=== PATIENT | male | born 1955 | race Caucasian/White ===

== ENCOUNTER 2016-03-17 05:11 | Inpatient (IN) | payer OTHER ==
[2016-03-17 06:37] LABS: ABSOLUTE BASOPHILS # (AUTO) 0.1 10^3/uL (0.0-0.2); ABSOLUTE LYMPHOCYTES (AUTO) 1.1 10^3/uL (0.5-4.7); ABSOLUTE MONOCYTES (AUTO) 0.8 10^3/uL (0.1-1.4); ABSOLUTE NEUT (AUTO) 13.7 10^3/uL (1.7-8.2); BASOPHILS % (AUTO) 0.5 % (0-2); EOSINOPHILS % (AUTO) 0.1 % (0-6); HEMATOCRIT 49.5 % (37.9-51.0); HEMOGLOBIN 16.5 g/dL (13.5-17.0); MEAN CORPUSCULAR HEMOGLOBIN 31.6 pg (27.0-33.4); MEAN CORPUSCULAR HGB CONC 33.3 g/dL (32.0-36.0); MEAN CORPUSCULAR VOLUME 95 fl (80-97); MONOCYTES % (AUTO) 4.9 % (3-13); SEGMENTED NEUTROPHILS % (AUTO) 87.5 % (42-78); WHITE BLOOD COUNT 15.6 10^3/uL (4.0-10.5)
[2016-03-17 06:51] LABS: ALANINE AMINOTRANSFERASE 33 U/L (21-72); ALBUMIN 4.3 g/dL (3.5-5.0); ALKALINE PHOSPHATASE 116 U/L (38-126); ANION GAP 14 (5-19); ASPARTATE AMINO TRANSFERASE 27 U/L (17-59); BLOOD UREA NITROGEN 14 mg/dL (7-20); CALCIUM 10.1 mg/dL (8.4-10.2); CARBON DIOXIDE 29 mmol/L (22-30); CHLORIDE 101 mmol/L (98-107); CREATININE RESULT 0.94 mg/dL (0.52-1.25); GLUCOSE 189 mg/dL (75-110); LIPASE 162.4 U/L (23-300); POTASSIUM 4.3 mmol/L (3.6-5.0); SODIUM 143.9 mmol/L (137-145); TOTAL PROTEIN 7.9 g/dL (6.3-8.2)
--- NOTE | 2016-03-17 07:39 | ER Document Report ---
ED General - General Chief Complaint: Abdominal Pain Stated Complaint: ABDOMINAL PAIN Mode of Arrival: Ambulatory Information source: Patient Notes: 60-year-old male history of previous hernia repair presents with complaints of umbilical tenderness. Patient denies any fevers chills nausea vomiting or diarrhea patient states the pain has been sharp in nature TRAVEL OUTSIDE OF THE [place] IN LAST 30 DAYS: No - HPI Onset: Yesterday Onset/Duration: Sudden Quality of pain: Sharp Severity: Mild Pain Level: 2 Associated symptoms: None Exacerbated by: Denies Relieved by: Denies Similar symptoms previously: No Recently seen / treated by doctor: No - Related Data Allergies/Adverse Reactions: No Known Allergies Allergy (Verified 12/31/15 12:25) Home Medications: Current Home Medications Gabapentin [Gabapentin] 03/17/16 [History] Past Medical History - Social History Smoking Status: Current Every Day Smoker Cigarette use (# per day): Yes Chew tobacco use (# tins/day): No Smoking Education Provided: No Family History: Reviewed & Not Pertinent - Past Medical History Cardiac Medical History: Reports: Hx Hypercholesterolemia, Hx Heart Murmur - resolved Denies: Hx Atrial Fibrillation, Hx Congestive Heart Failure, Hx Coronary Artery Disease, Hx Heart Attack, Hx Hypertension, Hx Peripheral Vascular Disease Pulmonary Medical History: Neurological Medical History: GI Medical History: Reports: Hx Hiatal Hernia. Denies: Hx Crohn's Disease, Hx Gastroesophageal Reflux Disease, Hx Hepatitis, Hx Irritable Bowel, Hx Liver Failure, Hx Ulcer Musculoskeltal Medical History: Reports Hx Arthritis, Denies Hx Fibromyalgia, Denies Hx Muscular Dystrophy Traumatic Medical History: Reports: Hx Fractures - ring finger-right hand Infectious Medical History: Denies: Hx Hepatitis Past Surgical History: Reports: Hx Bowel Surgery, Hx Herniorrhaphy, Hx Tonsillectomy. Denies: Hx Appendectomy, Hx Cholecystectomy, Hx Colostomy, Hx Coronary Artery Bypass Graft, Hx Gastric Bypass Surgery, Hx Open Heart Surgery, Hx Pacemaker Review of Systems - Review of Systems Notes: REVIEW OF SYSTEMS: CONSTITUTIONAL : Denies fever, chills, or sweats. Denies recent illness. EENT: Denies eye, ear, throat, or mouth pain or symptoms. Denies nasal or sinus congestion or discharge. Denies throat, tongue, or mouth swelling or difficulty swallowing. CARDIOVASCULAR: Denies chest pain. Denies palpitations or racing or irregular heart beat. Denies ankle edema. RESPIRATORY: Denies cough, cold, or chest congestion. Denies shortness of breath, difficulty breathing, or wheezing. GASTROINTESTINAL: admits ot ad pain GENITOURINARY: Denies difficulty urinating, painful urination, burning, frequency, blood in urine, or discharge. MUSCULOSKELETAL: Denies back or neck pain or stiffness. Denies joint pain or swelling. SKIN: Denies rash, lesions or sores. HEMATOLOGIC : Denies easy bruising or bleeding. LYMPHATIC: Denies swollen, enlarged glands. NEUROLOGICAL: Denies confusion or altered mental status. Denies passing out or loss of consciousness. Denies dizziness or lightheadedness. Denies headache. Denies weakness or paralysis or loss of use of either side. Denies problems with gait or speech. Denies sensory loss, numbness, or tingling. Denies seizures. PSYCHIATRIC: Denies anxiety or stress. Denies depression, suicidal ideation, or homicidal ideation. ALL OTHER SYSTEMS REVIEWED AND NEGATIVE. Dictation was performed using BU[employer] voice recognition software PHYSICAL EXAMINATION: GENERAL: Well-appearing, well-nourished and in no acute distress. HEAD: Atraumatic, normocephalic. EYES: Pupils equal round and reactive to light, extraocular movements intact, sclera anicteric, conjunctiva are normal. ENT: Nares patent, oropharynx clear without exudates. Moist mucous membranes. NECK: Normal range of motion, supple without lymphadenopathy LUNGS: Breath sounds clear to auscultation bilaterally and equal. No wheezes rales or rhonchi. HEART: Regular rate and rhythm without murmurs ABDOMEN: Soft, tender in the umbilical region, no hernia noted, previous surgical inciosins well healed. Musculoskeletal: Normal range of motion, no pitting or edema. No cyanosis. NEUROLOGICAL: Cranial nerves grossly intact. Normal speech, normal gait. Normal sensory, motor exams PSYCH: Normal mood, normal affect. SKIN: Warm, Dry, normal turgor, no rashes or lesions noted. Physical Exam - Vital signs Vitals: Temp Pulse Resp BP Pulse Ox 97.8 F 93 19 151/86 H 92 03/17/16 05:27 03/17/16 05:27 03/17/16 05:27 03/17/16 05:27 03/17/16 05:27 Course - Re-evaluation Re-evalutation: 03/17/16 07:39 ct emergently ordered to rule out dissection 03/17/16 08:[address] is concerning for a small bowel obstruction patient notes last bowel movement yesterday at 7:30 pain started around 11. Contacted surgeon who is in the middle surgery NG tube will be placed 03/17/16 09:53 Dr. Chowdhury will evaluate the patient for admission - Vital Signs Vital signs: Temp Pulse Resp BP Pulse Ox 97.9 F 94 16 144/89 H 95 03/17/16 07:48 03/17/16 07:48 03/17/16 09:01 03/17/16 09:01 03/17/16 09:01 - Laboratory Result Diagrams: 03/17/16 06:25 03/17/16 06:25 Laboratory results interpreted by me: 03/17/16 03/17/16 06:25 06:25 WBC 15.6 H Seg Neutrophils % 87.5 H Lymphocytes % 7.0 L Absolute Neutrophils 13.7 H Glucose 189 H - Diagnostic Test Radiology reviewed: Image reviewed, Reports reviewed Discharge - Discharge Clinical Impression: Small bowel obstruction Condition: Stable Disposition: ADMITTED OBSERVATION Admitting Provider: Surgicalist Unit Admitted: Surgical Floor
[2016-03-17] MEDS ORDERED: NORMAL SALINE 1000 ML 1,000 ML IV PRN (08:10)
[2016-03-17 09:58] LABS: APPEARANCE,URINE CLEAR; BILIRUBIN,URINE NEGATIVE (NEGATIVE); GLUCOSE, URINE 50 mg/dL (NEGATIVE); KETONES,URINE NEGATIVE (NEGATIVE); LEUKOCYTE ESTERASE,URINE NEGATIVE (NEGATIVE); NITRITE,URINE NEGATIVE (NEGATIVE); PROTEIN,URINE NEGATIVE (NEGATIVE)
[2016-03-17 10:01] LABS: URINE SPECIFIC GRAVITY > 1.060
[2016-03-17] MEDS ORDERED: LORAZEPAM INJ 2 MG/1 ML VIAL IV ONE (11:13)
[2016-03-17] MEDS ORDERED: PHARMACY COMMUNICATION ORDER MC NR ×2 (11:45→15:30)
[2016-03-17] MEDS ORDERED: ONDANSETRON HCL INJ/PF 4 MG/2 ML SDV IV PRN (15:28)
--- NOTE | 2016-03-17 16:03 | PDOC H&P ---
History of Present Illness Admission Date/PCP: 03/17/16 10:28 JOSE PIERRE MD History of Present Illness: MARLEN RAYMOND JR is a 60 -year-old white male who was awoken from his sleep at 1:30 AM with the acute onset of severe mid abdominal pain. The pain was 5/ 10 aching at a baseline with more intense sharp spasms of pain 10/10. Sharp spasms of pain would last 20-30 seconds. In addition to the sharp central abdominal pain he also had a bloating feeling, shakes with pain, sweats, lightheadedness, increased burping, feeling of his "guts" churning and decreased urine output. He reports rare flatus today. He reports a normal bowel movement, brown, performed at 8 PM last evening. The pain did not radiate up to his chest, down to his legs nor around to his back. He had shortness of breath due to the pain only, but no baseline shortness of breath. He reports history of ventral hernia repair in 1966 as well as umbilical hernia [place] [address] Moncada. He denies any previous bowel obstructions. Review of systems is positive for right leg swelling. He had recent right total knee replacement on 01/11/2016 and still has swelling. Past Medical History Cardiac Medical History: Reports: Hyperlipidema, Heart Murmur Pulmonary Medical History: Neurological Medical History: Musculoskeltal Medical History: Reports: Arthritis - Osteoarthritis. Total right knee replacement., Other - Chronic low back pain. Hematology: Past Surgical History Past Surgical History: Reports: Herniorrhaphy - Ventral hernia repair 1966. Umbilical hernia repair 2008, Dr. Moncada., Orthopedic Surgery - Right total knee replacement on 01/19/2016., Tonsillectomy - 1964, Other Social History Information Source: Patient Lives with: Alone Smoking Status: Former Smoker - On Chantix for almost 3 months. Cigarettes Packs Per Day: 1.5 Number of Years Smokin Frequency of Alcohol Use: None Hx Recreational Drug Use: No Hx Prescription Drug Abuse: No Family History Family History: Reviewed & Not Pertinent, Other - Denies any family history of bleeding disorders, blood clots or anesthesia problems. Parental Family History Reviewed: Yes Children Family History Reviewed: Yes Sibling(s) Family History Reviewed.: Yes Medication/Allergy Home Medications: Atorvastatin Calcium [Lipitor 40 mg Tablet] 40 mg PO QHS 03/17/16 Gabapentin [Neurontin 300 mg Capsule] 300 mg PO Q8HP PRN 03/17/16 Multivitamin [Multivitamins] 1 each PO DAILY 03/17/16 Varenicline Tartrate [Chantix 1 mg Tablet] 1 mg PO BID 03/17/16 Allergies/Adverse Reactions: No Known Allergies Allergy (Verified 12/31/15 12:25) Review of Systems All systems: reviewed and no additional remarkable complaints except as stated Physical Exam Vital Signs: Temp Pulse Resp BP Pulse Ox 98.8 F 94 13 146/87 H 96 03/17/16 15:00 03/17/16 07:48 03/17/16 15:01 03/17/16 15:01 03/17/16 15:01 General appearance: PRESENT: no acute distress, morbidly obese Head exam: PRESENT: normocephalic Eye exam: PRESENT: EOMI Mouth exam: PRESENT: tongue midline Neck exam: ABSENT: JVD, lymphadenopathy, tenderness, thyromegaly Respiratory exam: PRESENT: clear to auscultation jeovany Cardiovascular exam: PRESENT: RRR, systolic murmur GI/Abdominal exam: PRESENT: distended, soft, other - Some bowel sounds. NG tube to low intermittent suction with feculent material.. ABSENT: guarding, rebound, tenderness Extremities exam: PRESENT: other - Bilateral lower extremity swelling, right is worse than the left. Right knee has a healed total knee replacement vertical incision. Neurological exam: PRESENT: alert, oriented to person, oriented to place, oriented to time, oriented to situation Psychiatric exam: PRESENT: appropriate affect, normal mood Skin exam: ABSENT: jaundice Results Impressions: Abdomen/Pelvis CT 03/17/16 06:18 IMPRESSION: Findings consistent with a small bowel obstruction as noted above. Small gallstones are identified. Other findings as noted above KUB X-Ray 03/17/16 08:31 IMPRESSION: Nasogastric tube tip and side port in the stomach Status: Image reviewed by me Assessment & Plan - Diagnosis (1) SBO (small bowel obstruction) Is this a current diagnosis for this admission?: YesPlan: Discussed and reviewed films, labs, NG tube output. Small bowel obstruction. Recommend admission to hospital, IV fluids, nothing by mouth status, continued NG tube to low intermittent suction, SCDs, Lovenox for DVT/PE prophylaxis, incentive spirometry, recheck labs in the morning. We discussed indications for proceeding to urgent/emergent surgery but short of those indications, we anticipate a nonoperative course.
[2016-03-17] MEDS ORDERED: PANTOPRAZOLE SODIUM 40 MG VIAL IV ONE (16:30)
[2016-03-17] MEDS: POTASSI CL 20 MEQ/D5-1/2NS 1L 1,000 ML IV PRN (16:55)
[2016-03-17] MEDS: MORPHINE SULFATE 10 MG/ML INJ IV PRN (20:53)
[2016-03-17] MEDS ORDERED: INFLUENZA ADLT QUAD (36MOS+) 2016-17 VAC 0.5 ML SYR IM PRN (21:48)
[2016-03-18] MEDS: POTASSI CL 20 MEQ/D5-1/2NS 1L 1,000 ML IV PRN (04:53)
[2016-03-18] MEDS: MORPHINE SULFATE 10 MG/ML INJ IV PRN (05:05)
[2016-03-18 06:38] LABS: HEMOGLOBIN 15.6 g/dL (13.5-17.0); HGB HCT DIFFERENCE -1.2; MEAN CORPUSCULAR HEMOGLOBIN 31.2 pg (27.0-33.4); MEAN CORPUSCULAR HGB CONC 32.5 g/dL (32.0-36.0); MEAN CORPUSCULAR VOLUME 96 fl (80-97); RED BLOOD COUNT 4.99 10^6/uL (4.35-5.55); RED CELL DISTRIBUTION WIDTH 12.9 % (11.5-14.0); WHITE BLOOD COUNT 11.1 10^3/uL (4.0-10.5)
[2016-03-18 07:00] LABS: ALANINE AMINOTRANSFERASE 31 U/L (21-72); ALBUMIN 3.9 g/dL (3.5-5.0); ALKALINE PHOSPHATASE 95 U/L (38-126); ANION GAP 10 (5-19); ASPARTATE AMINO TRANSFERASE 21 U/L (17-59); BLOOD UREA NITROGEN 8 mg/dL (7-20); CALCIUM 9.3 mg/dL (8.4-10.2); CARBON DIOXIDE 28 mmol/L (22-30); CHLORIDE 105 mmol/L (98-107); CREATININE RESULT 0.91 mg/dL (0.52-1.25); GLUCOSE 113 mg/dL (75-110); POTASSIUM 4.4 mmol/L (3.6-5.0); SODIUM 143.2 mmol/L (137-145); TOTAL PROTEIN 6.8 g/dL (6.3-8.2)
--- NOTE | 2016-03-18 09:07 | PDOC PROGRESS REPORT ---
Subjective Progress Note for:: 03/18/16 Subjective:: Feels well. No abdominal complaints. Symptoms completely resolved. Passing gas. Physical Exam Vital Signs: Temp Pulse Resp BP Pulse Ox 97.9 F 70 16 140/81 H 95 03/18/16 07:34 03/18/16 07:34 03/18/16 07:34 03/18/16 07:34 03/18/16 07:34 Intake & Output 03/17/16 03/18/16 03/19/16 06:59 06:59 06:59 Intake Total 3000 Output Total 3250 Balance -250 Weight 138.2 kg General appearance: PRESENT: no acute distress Respiratory exam: PRESENT: clear to auscultation jeovany Cardiovascular exam: PRESENT: RRR GI/Abdominal exam: PRESENT: other - Soft, nondistended, nontender to palpation, normal bowel sounds. Results Laboratory Results: 03/18/16 06:29 03/18/16 06:29 03/18/16 03/18/16 06:29 06:29 WBC 11.1 H RBC 4.99 Hgb 15.6 Hct 48.0 MCV 96 MCH 31.2 MCHC 32.5 RDW 12.9 Plt Count 248 Sodium 143.2 Potassium 4.4 Chloride 105 Carbon Dioxide 28 Anion Gap 10 BUN 8 Creatinine 0.91 Est GFR ( Amer) > 60 Est GFR (Non-Af Amer) > 60 Glucose 113 H Calcium 9.3 Total Bilirubin 1.0 AST 21 ALT 31 Alkaline Phosphatase 95 Total Protein 6.8 Albumin 3.9 Impressions: Abdomen/Pelvis CT 03/17/16 06:18 IMPRESSION: Findings consistent with a small bowel obstruction as noted above. Small gallstones are identified. Other findings as noted above KUB X-Ray 03/17/16 08:31 IMPRESSION: Nasogastric tube tip and side port in the stomach Assessment & Plan - Diagnosis (1) SBO (small bowel obstruction) Is this a current diagnosis for this admission?: YesPlan: Appears to have resolved. Will check the x-ray. If x-rays look okay will DC his NG tube and start a diet.
[2016-03-18] MEDS: PANTOPRAZOLE SODIUM 40 MG VIAL IV SCH (09:26)
[2016-03-18] MEDS: ENOXAPARIN SODIUM INJ 40 MG/0.4 ML DISP.SYRIN SUBCUT SCH (09:26)
--- NOTE | 2016-03-18 11:44 | PDOC PROGRESS REPORT ---
Subjective Progress Note for:: 03/18/16 Subjective:: Feels well. No abdominal complaints. Symptoms completely resolved. Passing gas. Physical Exam Vital Signs: Temp Pulse Resp BP Pulse Ox 97.9 F 70 16 140/81 H 95 03/18/16 07:34 03/18/16 07:34 03/18/16 07:34 03/18/16 07:34 03/18/16 07:34 Intake & Output 03/17/16 03/18/16 03/19/16 06:59 06:59 06:59 Intake Total 3000 Output Total 3250 Balance -250 Weight 138.2 kg Results Laboratory Results: 03/18/16 06:29 03/18/16 06:29 03/18/16 03/18/16 06:29 06:29 WBC 11.1 H RBC 4.99 Hgb 15.6 Hct 48.0 MCV 96 MCH 31.2 MCHC 32.5 RDW 12.9 Plt Count 248 Sodium 143.2 Potassium 4.4 Chloride 105 Carbon Dioxide 28 Anion Gap 10 BUN 8 Creatinine 0.91 Est GFR ( Amer) > 60 Est GFR (Non-Af Amer) > 60 Glucose 113 H Calcium 9.3 Total Bilirubin 1.0 AST 21 ALT 31 Alkaline Phosphatase 95 Total Protein 6.8 Albumin 3.9 Impressions: Abdomen/Pelvis CT 03/17/16 06:18 IMPRESSION: Findings consistent with a small bowel obstruction as noted above. Small gallstones are identified. Other findings as noted above KUB X-Ray 03/17/16 08:31 IMPRESSION: Nasogastric tube tip and side port in the stomach Abdomen X-Ray 03/18/16 00:00 IMPRESSION: Nasogastric tube decompressing the stomach Nonspecific bowel gas pattern. Decrease in distention of small bowel loops compared to prior plain films. Assessment & Plan - Diagnosis (1) SBO (small bowel obstruction) Is this a current diagnosis for this admission?: YesPlan: kub: air in colon and no sb distension. d/c ng, start clears.
[2016-03-19] MEDS: PANTOPRAZOLE SODIUM 40 MG VIAL IV SCH (10:42)
[2016-03-19] MEDS: ENOXAPARIN SODIUM INJ 40 MG/0.4 ML DISP.SYRIN SUBCUT SCH (10:43)
--- NOTE | 2016-03-19 11:09 | PDOC PROGRESS REPORT ---
Subjective Progress Note for:: 03/19/16 Subjective:: No nausea or vomiting. + Flatus and BM. No abdominal pain. Hungry. Physical Exam Vital Signs: Temp Pulse Resp BP Pulse Ox 97.9 F 76 18 129/81 H 96 03/19/16 07:25 03/19/16 07:25 03/19/16 07:25 03/19/16 07:25 03/19/16 07:25 Intake & Output 03/18/16 03/19/16 03/20/16 06:59 06:59 06:59 Intake Total 3000 1772 Output Total 3250 Balance -250 1772 Weight 138.2 kg 137.2 kg General appearance: PRESENT: no acute distress Head exam: PRESENT: normocephalic GI/Abdominal exam: PRESENT: normal bowel sounds, soft. ABSENT: distended, tenderness Extremities exam: PRESENT: other - Bilateral lower extremity edema, right percent left. Right knee incision. Neurological exam: PRESENT: alert, oriented to situation Psychiatric exam: PRESENT: appropriate affect, normal mood Results Laboratory Results: 03/18/16 06:29 03/18/16 06:29 Impressions: Abdomen/Pelvis CT 03/17/16 06:18 IMPRESSION: Findings consistent with a small bowel obstruction as noted above. Small gallstones are identified. Other findings as noted above KUB X-Ray 03/17/16 08:31 IMPRESSION: Nasogastric tube tip and side port in the stomach Abdomen X-Ray 03/18/16 00:00 IMPRESSION: Nasogastric tube decompressing the stomach Nonspecific bowel gas pattern. Decrease in distention of small bowel loops compared to prior plain films. Assessment & Plan - Diagnosis (1) SBO (small bowel obstruction) Is this a current diagnosis for this admission?: YesPlan: Doing well. Advance diet to soft. If he tolerates lunch and supper, possible DC later today.
--- NOTE | 2016-03-19 18:08 | PDOC DISCHARGE SUMMARY ---
General - Admit/Disc Date/PCP Admission Date/Primary Care Provider: 03/17/16 15:29 JOSE PIERRE MD Discharge Date: 03/19/16 - Discharge Diagnosis (1) SBO (small bowel obstruction) Is this a current diagnosis for this admission?: Yes - Additional Information Resuscitation Status: Full Code Discharge Diet: Regular Discharge Activity: Walk Frequently Home Medications: Atorvastatin Calcium [Lipitor 40 mg Tablet] 40 mg PO QHS 03/17/16 Gabapentin [Neurontin 300 mg Capsule] 300 mg PO Q8HP PRN 03/17/16 Multivitamin [Multivitamins] 1 each PO DAILY 03/17/16 Varenicline Tartrate [Chantix 1 mg Tablet] 1 mg PO BID 03/17/16 History of Present Illness History of Present Illness: MARLEN RAYMOND JR is a 60 -year-old white male who was awoken from his sleep at 1:30 AM with the acute onset of severe mid abdominal pain. The pain was 5/ 10 aching at a baseline with more intense sharp spasms of pain 10/10. Sharp spasms of pain would last 20-30 seconds. In addition to the sharp central abdominal pain he also had a bloating feeling, shakes with pain, sweats, lightheadedness, increased burping, feeling of his "guts" churning and decreased urine output. He reports rare flatus today. He reports a normal bowel movement, brown, performed at 8 PM last evening. The pain did not radiate up to his chest, down to his legs nor around to his back. He had shortness of breath due to the pain only, but no baseline shortness of breath. He reports history of ventral hernia repair in 1966 as well as umbilical hernia [place] [address] Moncada. He denies any previous bowel obstructions. CT scan was obtained which suggested small bowel obstruction. Surgery was consulted. Review of systems is positive for right leg swelling. He had recent right total knee replacement on 01/11/2016 and still has swelling. Hospital Course Hospital Course: Patient was admitted on 03/17/2016 for small bowel obstruction. There was difficulty placing an NG tube in the emergency department. The patient had an NG tube placed in radiology. He was managed with NG tube to low intermittent suction, nothing by mouth, IV fluids. The patient's abdominal pain resolved within hours of admission. His abdominal x-ray the next morning showed improvement in the dilated loops of small bowel. He is passing flatus. His NG tube was removed. His diet was gradually advanced. He tolerated soft diet on 03/19/2016 and was discharged late in the day. Physical Exam Vital Signs: Temp Pulse Resp BP Pulse Ox 98.2 F 86 19 132/75 H 96 03/19/16 15:09 03/19/16 15:09 03/19/16 15:09 03/19/16 15:09 03/19/16 15:09 Intake & Output 03/18/16 03/19/16 03/20/16 06:59 06:59 06:59 Intake Total 3000 1772 990 Output Total 3250 Balance -250 1772 990 Weight 138.2 kg 137.2 kg Physical Exam: See progress note from day of discharge. Results Laboratory Results: 03/18/16 06:29 03/18/16 06:29 Impressions: Abdomen/Pelvis CT 03/17/16 06:18 IMPRESSION: Findings consistent with a small bowel obstruction as noted above. Small gallstones are identified. Other findings as noted above KUB X-Ray 03/17/16 08:31 IMPRESSION: Nasogastric tube tip and side port in the stomach Abdomen X-Ray 03/18/16 00:00 IMPRESSION: Nasogastric tube decompressing the stomach Nonspecific bowel gas pattern. Decrease in distention of small bowel loops compared to prior plain films. Plan Discharge Plan: Discharge home. Walk frequently. Avoid large heavy meals; favor liquids and soft diet. Follow-up with primary care provider scheduled.
[2016-03-19 18:20] VITALS: BP 124/80
== END 2016-03-19 19:23 | disposition home or self-care (01) | DRG 390 ==
LOC: ER 05:11 → EH 10:28 → OBSVTOIN 15:29 → 4S 20:20
PROVIDERS: ATTEND Surgery
PROC: 0D9670Z Drainage of Stomach with Drainage Device, Via Natural or Artificial Opening (ICD-10-PCS; principal; 2016-03-17)
DX: K56.60 Unspecified intestinal obstruction (principal); E78.5 Hyperlipidemia, unspecified; M19.90 Unspecified osteoarthritis, unspecified site; Z96.651 Presence of right artificial knee joint; M54.5 Low back pain; F17.210 Nicotine dependence, cigarettes, uncomplicated
CPT/HCPCS: 36415; 43752; 74000; 74020; 74177; 80053; 81001; 83690; 85025; 85027; 96361; 96365; 96366; 96375; 99285; J1650; J2060; J2270; J3480; J7030; S0164

== ENCOUNTER 2016-05-27 06:40 | Day surgery (SDC) | payer OTHER ==
[2016-05-27] MEDS ORDERED: ONDANSETRON HCL INJ/PF 4 MG/2 ML SDV ONE (07:10)
[2016-05-27] MEDS ORDERED: GLYCOPYRROLATE INJ 0.4 MG/2 ML VIAL ONE (07:10)
[2016-05-27] MEDS ORDERED: NALOXONE HCL INJ/PF 0.4 MG/1 ML SDV ONE (07:11)
[2016-05-27] MEDS ORDERED: EPINEPHRINE INJ 1 MG/10 ML DISP.SYRIN ONE (07:12)
[2016-05-27] MEDS ORDERED: GLUCAGON,HUMAN RECOMB 1 MG INJ ONE (07:12)
[2016-05-27] MEDS ORDERED: FLUMAZENIL INJ 0.5 MG/5 ML VIAL IV ONE (07:12)
[2016-05-27] MEDS ORDERED: FENTANYL CITRATE INJ/PF 100 MCG/2 ML AMPUL ONE (07:12)
[2016-05-27] MEDS: MIDAZOLAM 2 MG/2 ML INJ ONE ×2 (07:45→07:52)
--- NOTE | 2016-05-27 08:20 | Operative Report ---
Operative Report DATE OF SURGERY: 05/27/16 PREOPERATIVE DIAGNOSIS: Personal history of colon polyps; status post right hemicolectomy POSTOPERATIVE DIAGNOSIS: Multiple small hyperplastic polyps of the rectum; no evidence of malignancy; scattered sigmoid diverticulosis OPERATION: Total colonoscopy to ileocolonic anastomosis SURGEON: EBONY PORTILLO ANESTHESIA: Moderate Sedation TISSUE REMOVED OR ALTERED: 3 polyps of the rectum COMPLICATIONS: None ESTIMATED BLOOD LOSS: scant INTRAOPERATIVE FINDINGS: See below PROCEDURE: Obtaining informed consent the patient was taken from the preoperative holding area to the main endoscopy suite where monitoring devices were attached to the patient. Plan and surgical timeout were conducted The patient was placed in the left lateral decubitus position with knees to chest. A perianal examination was performed. There was no visible or palpable anorectal pathology. Sphincter tone was felt to be normal. The flexible adult colonoscope was advanced through the anal rectal canal, all the way to previous ileocolonic anastomosis. The terminal ileum was scoped for approximately 5 cm and found to have no pathology. No evidence of tumor recurrence at the anastomosis. This was an excellent study on the well-prepped bowel. It was a minimal amount of green liquid stool. The colonoscope was withdrawn slowly and methodically checked and the mucosa carefully. There was no evidence of tumor, stricture, bleeding. There were 3 small polyps removed with cold forceps device, labeled rectal polyps and sent to pathology; there were scattered sigmoid diverticulosis, but no stricture. The scope was slowly withdrawn through the anal rectal canal. Complete visualization of the rectum was achieved with photodocumentation. The scope was withdrawn to the patient's anus. The patient tolerated the procedure well and was taken to the recovery area in stable condition. Her surveillance guidelines, patient will be an appropriate candidate for follow colonoscopy in 3 years.
--- NOTE | 2016-05-27 08:22 | PDOC DISCHARGE SUMMARY ---
Discharge Summary (SDC) - Discharge Final Diagnosis: Rectal polyps; diverticulosis; status post right hemicolectomy Date of Surgery: 05/27/16 Discharge Date: 05/27/16 Condition: Good Treatment or Instructions: [address] [id number] POST ENDOSCOPY DISCHARGE INSTRUCTIONS 1. Diet: Start clear liquids that a regular diet as tolerated. 2. Resume all preoperative medications. All oral anticoagulants and aspirins can be resumed 24 hours after procedure. 3. If a polypectomy was performed some bleeding per rectum may occur. This should stop within 3 days. If not, please contact the office. 4. If you had a colonoscopy you may experience some bloating and delayed return of normal bowel function for several days, your regular bowel movement pattern should resume within a week. 5. Please contact [facility] at to make an appointment with Dr. Moncada for 1 to 3 weeks following procedure. 6. If you have any questions or concerns regarding your care,treatment plan or follow up, please contact our office. 7. Per clinical guidelines we recommend you undergo a repeat colonoscopy in 3 years. Discharge Diet: As Tolerated Discharge Activity: Activity As Tolerated Home Care Assistance: None Needed Report the Following to Your Physician Immediately: Shortness of Breath, Increase in Pain, Fever over 101 Degrees
[2016-05-27 09:11] VITALS: BP 123/76
== END 2016-05-27 09:12 | disposition home or self-care (01) ==
LOC: END 06:40
PROVIDERS: ATTEND Surgery
PROC: 0DBP8ZX Excision of Rectum, Via Natural or Artificial Opening Endoscopic, Diagnostic (ICD-10-PCS; principal; 2016-05-27 07:30)
DX: K62.1 Rectal polyp (principal); K57.30 Diverticulosis of large intestine without perforation or abscess without bleeding; Z85.038 Personal history of other malignant neoplasm of large intestine; Z90.49 Acquired absence of other specified parts of digestive tract; Z96.651 Presence of right artificial knee joint; Z87.891 Personal history of nicotine dependence; Z79.899 Other long term (current) drug therapy
CPT/HCPCS: 45380; 88305 ×2; J2250; J0171; J3010; J1610; J2310; J2405; J3490

== ENCOUNTER 2019-08-29 07:22 | Day surgery (SDC) | payer OTHER ==
[2019-08-23 14:18] LABS: HEMATOCRIT 47.4 % (37.9-51.0); HEMOGLOBIN 16.8 g/dL (13.5-17.0); MEAN CORPUSCULAR HEMOGLOBIN 33.9 pg (27.0-33.4); MEAN CORPUSCULAR HGB CONC 35.5 g/dL (32.0-36.0); MEAN CORPUSCULAR VOLUME 96 fl (80-97); PLATELET COUNT 243 10^3/uL (150-450); RED BLOOD COUNT 4.96 10^6/uL (4.35-5.55); RED CELL DISTRIBUTION WIDTH 13.2 % (11.5-14.0)
[2019-08-29] MEDS ORDERED: PROPOFOL INJ 200 MG/20 ML VIAL IV ONE (09:05)
[2019-08-29] MEDS ORDERED: MEPERIDINE HCL/PF INJ 25 MG/1 ML DISP.SYRIN IV PRN (11:26)
[2019-08-29] MEDS ORDERED: FENTANYL CITRATE INJ/PF 100 MCG/2 ML AMPUL IV PRN ×3 (11:26)
[2019-08-29] MEDS ORDERED: DIPHENHYDRAMINE HCL 50 MG/ML VIAL IV PRN (11:26)
[2019-08-29] MEDS ORDERED: PROMETHAZINE HCL INJ 25 MG/1 ML VIAL IV PRN ×2 (11:26)
--- NOTE | 2019-08-29 11:48 | Discharge Summary ---
Discharge Summary (SDC) - Discharge Final Diagnosis: 1. Intact ileo-transverse colon anastomosis 2. Colon and rectal polyps 3. Diverticulosis of the left colon Date of Surgery: 08/29/19 Discharge Date: 08/29/19 Condition: Good Treatment or Instructions: [facility] [address] [id number] POST ENDOSCOPY DISCHARGE INSTRUCTIONS 1. Diet: Start clear liquids that a regular diet as tolerated. 2. Resume all preoperative medications. All oral anticoagulants and aspirins can be resumed 24 hours after procedure. 3. If a polypectomy was performed some bleeding per rectum may occur. This should stop within 3 days. If not, please contact the office. 4. If you had a colonoscopy you may experience some bloating and delayed return of normal bowel function for several days, your regular bowel movement pattern should resume within a week. 5. Please contact [facility] at to make an appointment with Dr. Moncada for 1 to 3 weeks following procedure. 6. If you have any questions or concerns regarding your care,treatment plan or follow up, please contact our office. 7. Per clinical guidelines we recommend you undergo a repeat colonoscopy in 3-5 years. Referrals: JOSE PIERRE MD [Primary Care Provider] - Discharge Diet: As Tolerated Discharge Activity: Activity As Tolerated Home Care Assistance: None Needed Report the Following to Your Physician Immediately: Shortness of Breath, Increase in Pain, Fever over 101 Degrees
--- NOTE | 2019-08-29 11:52 | Operative Report ---
Operative Report DATE OF SURGERY: 08/29/19 PREOPERATIVE DIAGNOSIS: 1. Personal history of colon polyps. 2. History of d iverticulosis. 3. Status post right hemicolectomy POSTOPERATIVE DIAGNOSIS: Same with colon and rectal polyps x2 OPERATION: 1. Total colonoscopy to ileo-transverse colon anastomosis. 2. Colon and rectal polyps x2 SURGEON: EBONY PORTILLO ANESTHESIA: LMAC TISSUE REMOVED OR ALTERED: Polyps x2 COMPLICATIONS: None ESTIMATED BLOOD LOSS: Scant INTRAOPERATIVE FINDINGS: See below PROCEDURE: Obtaining informed consent the patient was taken from the preoperative holding area to the main endoscopy suite where monitoring devices were attached to the patient. Plan and surgical timeout were conducted The patient was placed in the left lateral decubitus position with knees to chest. A perianal examination was performed. There was no visible or palpable anorectal pathology. Sphincter tone was felt to be normal. The flexible adult colonoscope was advanced through the anal rectal canal, all the way to the ileotransverse colon anastomosis. Photographs were taken. The bowel prep was poor as there was a lot of residual liquid yellow stool with particulate irrigation and aspiration. The colonoscope was withdrawn slowly and methodically checked and the mucosa carefully. Again 100% visualization of the mucosa not suitable due to the residual stool, but we were not highly confident no significant masses were. There was no evidence of tumor, stricture, or bleeding'. There were extensive diverticulosis of the left colon; photos were taken. In the transverse colon and in the upper rectum were 2 to 3 mm sessile polyps, likely hyperplastic; bleeding at the sites was minimal. The scope was slowly withdrawn through the anal rectal canal. Complete visualization of the rectum was achieved with photodocumentation. The scope was withdrawn to the patient's anus. The patient tolerated the procedure well and was taken to the recovery area in stable condition. Per surveillance guidelines, patient will be an appropriate candidate for follow-up colonoscopy in 3-5 years.
[2019-08-29 15:11] VITALS: BP 140/72
== END 2019-08-29 15:08 | disposition home or self-care (01) ==
LOC: OROUT 07:22
PROVIDERS: ATTEND Surgery
DX: Z86.010 Personal history of colon polyps (principal); K57.30 Diverticulosis of large intestine without perforation or abscess without bleeding; D12.3 Benign neoplasm of transverse colon; K63.5 Polyp of colon; Z90.49 Acquired absence of other specified parts of digestive tract; F17.210 Nicotine dependence, cigarettes, uncomplicated; E78.00 Pure hypercholesterolemia, unspecified; E66.9 Obesity, unspecified; Z96.651 Presence of right artificial knee joint; Z79.82 Long term (current) use of aspirin; Z79.899 Other long term (current) drug therapy; Z03.818 Encounter for observation for suspected exposure to other biological agents ruled out
CPT/HCPCS: 45380; 36415; 85027; 87635; 88305 ×2; J2704; C9803; 812

== ENCOUNTER → 2020-01-01 | Outpatient (CLI) | payer OTHER ==
--- NOTE | 2020-01-01 14:10 | RADIOLOGY REPORT (SQ) ---
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 TECHNIQUE: Dynamic and static gillette scale and color images acquired of the left leg venous system. Se lected spectral images acquired with additional compression and augmentation maneuvers. The contralat eral common femoral vein and saphenofemoral junction were also imaged. Images stored on PACS. LIMITATIONS: None. FINDINGS: COMMON FEMORAL: Normal phasicity, compression and augmentation. No visualized echogenic ma terial on gillette scale. No defects on color images. FEMORAL: Normal compression and augmentation. No visualized echogenic material on gillette scale. No defe cts on color images. POPLITEAL: Normal compression, augmentation. No visualized echogenic material on gillette scale. No defec ts on color images. CALF VESSELS: Normal compression, augmentation. No visualized echogenic material on gillette scale. No de fects on color images. GSV and SSV: Normal compression, augmentation. No visualized echogenic material on gillette scale. No def ects on color images. ANY DEEP VENOUS INSUFFICIENCY: Not evaluated. ANY EVIDENCE OF POPLITEAL CYST: No. OTHER: No other significant finding. CONTRALATERAL COMMON FEMORAL VEIN AND SAPHENOFEMORAL JUNCTION: Normal phasicity, compression and augmentation. No visualized echogenic material on gillette scale. No de fects on color images. IMPRESSION: NO EVIDENCE DVT OR SVT IN THE LEFT LEG. TECHNICAL DOCUMENTATION: JOB ID: [id number] 2010 [employer]- All Rights Reserved Reading location - IP/workstation name: [email or web address]
== END ==
LOC: SP 08:38
PROVIDERS: ATTEND Family Medicine
DX: I83.12 Varicose veins of left lower extremity with inflammation (principal)
CPT/HCPCS: 93971